=== PATIENT | female | born 1970 | race Caucasian/White ===

== ENCOUNTER → 2017-08-24 13:30 | Outpatient (CLI) | payer OTHER, BC, SELFPAY ==
--- NOTE | 2017-08-24 13:36 | MM_ITS ---
MM Dig mamm DX unilat RT CAD INDICATION: Follow-up abnormal mammogram ORDERING PHYSICIAN: Jack Hall MD PATIENT AGE: 46 years COMPARISON: 1128 and 17, 02/27/2017, 02/24/2016 TECHNIQUE: Standard images performed along with problem-solving views FINDINGS: There is dense fibroglandular tissue which decreases the sensitivity of mammography. Asymmetric density is present in the retroareolar region centrally as before this is not significant changed and is felt to represent asymmetric fibroglandular tissue have an a similar appearance dating back to 12/15/2011. No malignant appearing mass or malignant appearing microcalcification is evident. IMPRESSION: Dense fibroglandular tissue. No convincing evidence of malignancy BI-RADS Category: BI-RADS Category: 2 Benign Finding(s) RECOMMENDED FOLLOW-UP: 6M - 6 MONTH FOLLOW-UP Recommend continued screening mammogram in 6 months of both breasts (A letter has been sent to the patient regarding results of the study.)
== END ==
PROVIDERS: PCP Internal Medicine Adolescent Medicine; Visit Provider Nurse Practitioner Obstetrics & Gynecology
DX: R92.2 Inconclusive mammogram (principal)
CPT/HCPCS: 77065

== ENCOUNTER → 2018-02-26 12:53 | Outpatient (CLI) | payer OTHER, BC, SELFPAY ==
--- NOTE | 2018-02-26 12:54 | MM_ITS ---
MM Dig screening mamm BI w/CAD ORDERING PHYSICIAN : Jack Hall MD PATIENT AGE: 47 years GENDER: Female COMPARISON: Bilateral mammogram studies from February 2017 and 2015 & December 2011 bilateral mammogram,. as well as right mammogram August 2017 INDICATION: ITS.REASON: Routine Screening Mammogram Family history. Mother age 65 TECHNIQUE: Standard CC and MLO images were obtained. R2 CAD reviewed.. Additional axillary cc view both breast along with nipple profile MLO right breast FINDINGS: Moderately dense breast bilaterally with stable mild asymmetry. Prior films are helpful and demonstrates stability of this pattern with no significant new areas of concern. RIGHT BREAST:. Right breast appears similar to 2017 exam. Mild asymmetry with slightly more evident fibroglandular elements at the right breast again noted and appears stable but no new findings of significant concern otherwise. LEFT BREAST:Stable with no new areas of concern. Follow-up in one year adequate IMPRESSION: Stable bilateral mammogram no significant new findings. Moderately dense breast. With Stable mild asymmetry. Bilateral follow-up in one year recommended. BI-RADS Category: 1 Negative RECOMMENDED FOLLOW-UP: 1YR 1 YEAR FOLLOW-UP (A letter has been sent to the patient regarding results of the study.)
== END ==
PROVIDERS: PCP Internal Medicine Adolescent Medicine; Visit Provider Nurse Practitioner Obstetrics & Gynecology
DX: Z12.31 Encounter for screening mammogram for malignant neoplasm of breast (principal)
CPT/HCPCS: 77067

== ENCOUNTER → 2018-06-28 11:00 | Outpatient (CLI) | payer OTHER, BC, SELFPAY ==
--- NOTE | 2018-06-28 11:01 | CT_ITS ---
CT abdomen pelvis wo/w con CLINICAL INDICATION: Left lower quadrant pain ITS.REASON: LLQ PAIN ORDERING PHYSICIAN: Kamilla Palomares PATIENT AGE: 47 years COMPARISON: 03/16/2011 TECHNIQUE: Axial images obtained with sagittal and coronal reformats. All CT scans at the facility use one or more dose reduction, viz: automated exposure control, ma/kV adjustment per patient size (including targeted exams where dose is matched to indication, i.e. head), or iterative reconstruction technique. PROCEDURE: Oral Contrast: Redicat IV Contrast: 75 mL's Optiray 350. FINDINGS: No acute finding in the lung bases. There is a 10 mm isodense lesion in the medial segment left hepatic lobe anteriorly consistent with a hepatic cysts. An additional lobular lesion is present in the left hepatic lobe at 11 mm and also one in the caudate lobe at 11 mm consistent with hepatic cysts. These are slightly increased in size compared to the previous study. There are postcholecystectomy changes. No renal or ureteral calculi. No hydronephrosis. The spleen, adrenal glands, and pancreas have an unremarkable appearance. There are post appendectomy changes. No intestinal obstruction or free air is evident. There is diverticulosis of the descending and sigmoid colon. There is thickening of the sigmoid colon with a more focal area of thickening involving the mid aspect of the sigmoid colon with mild soft tissue prominence projecting medially and superiorly and some with some minimal enhancement in this area consistent with diverticulitis. No abscess or free air is evident. There is some somewhat stellate stranding of the fat in this region superior to the urinary bladder. This however had a similar appearance on the previous exam and millimeters vascularity. There is grade 1 Spondylitic spondylolisthesis of L5 on S1. Degenerative disc disease is also present at that level. IMPRESSION: 1. The findings are compatible with diverticulitis of the sigmoid colon. There is some nodular thickening at this region therefore, follow-up is recommended to confirm resolution. Neoplasm is felt to be less likely but is not completely excluded. 2. Diffuse diverticulosis of the descending and sigmoid colon. 3. Hepatic cysts
== END ==
PROVIDERS: PCP Nurse Practitioner Family; Visit Provider Nurse Practitioner Family
DX: R10.32 Left lower quadrant pain (principal)
CPT/HCPCS: 74178; Q9967

== ENCOUNTER → 2019-03-29 08:30 | Outpatient (CLI) | payer OTHER, BC, SELFPAY ==
--- NOTE | 2019-03-29 08:32 | MM_ITS ---
PROCEDURE: MM DIG SCREENING MAMM BI W/CAD CLINICAL INDICATION: SCREENING There is a history of breast cancer patient's mother diagnosed after menopause. COMPARISON: DMDXUAVR DIG MAMM-DX UNI A/VW-RT W/CAD from 03/07/2017 DXRT MM Dig mamm DX unilat RT CAD from 08/24/2017 [facility] MM Dig screening mamm BI w/CAD from 02/26/2018 TECHNIQUE: Standard CC and MLO images were obtained. R2 CAD reviewed. FINDINGS: Moderate fibroglandular densities are seen in the central portions of both breast. There is a mole marker left breast. There are couple of benign-appearing microcalcifications right breast. There is no suspicious lesion and no suspicious microcalcifications. IMPRESSION: Stable exam with no suspicious lesions seen BI-RAD Category: 2 Benign Finding(s) FOLLOW-UP: 1YR 1 Year Follow-up (A letter has been sent to the patient regarding results of the study.) Dictated by: Dr. Giuseppe Bautista MD 03/31/2019 09:[address] Giuseppe Bautista MD in [place] 03/31/2019 09:27
== END ==
PROVIDERS: PCP Internal Medicine Adolescent Medicine; Visit Provider Internal Medicine Adolescent Medicine
DX: Z12.31 Encounter for screening mammogram for malignant neoplasm of breast (principal)
CPT/HCPCS: 77067

== ENCOUNTER → 2019-09-13 14:06 | Outpatient (CLI) | payer OTHER, BC, SELFPAY ==
[2019-09-13 16:54] LABS: Coronavirus 19 IgG Antibody Negative (Negative); Coronavirus 19 IgM Antibody Negative (Negative)
== END ==
PROVIDERS: Visit Provider Internal Medicine Adolescent Medicine
DX: Z03.818 Encounter for observation for suspected exposure to other biological agents ruled out (principal)
CPT/HCPCS: 36415; 86328

== ENCOUNTER → 2019-11-28 11:41 | Outpatient (CLI) | payer OTHER, BC, SELFPAY ==
--- NOTE | 2019-11-28 12:09 | CT_ITS ---
PROCEDURE: CT ABDOMEN PELVIS WO/W CON CLINICAL INDICATION: DIVERTICULITIS, RLQ ABD PAIN Right lower quadrant pain, history of diverticulitis COMPARISON: CT ABDPELWW CT abdomen pelvis wo/w con from 06/28/2018 TECHNIQUE: IV Contrast: 75ML OPTIRAY 350 Oral Contrast 10ml Gastroview Axial images obtained with sagittal and coronal reformats. All CT scans at the facility use one or more dose reduction, viz: automated exposure control, ma/kV adjustment per patient size (including targeted exams where dose is matched to indication, i.e. head), or iterative reconstruction technique. FINDINGS: LOWER THORAX: No acute finding ABDOMEN & PELVIS: There are scattered hypodensities involving the liver which may represent a P[place]ock cysts. There has been a prior cholecystectomy. The spleen, adrenal glands, pancreas, and kidneys show no acute finding. No renal or ureteral calculi. No hydronephrosis. There are suspected small bilateral renal cortical cysts too small to categorize. Prior appendectomy. There is diverticulosis of the descending and sigmoid colon. There is some minimal stranding of the pericolic fat around a diverticulum along the medial aspect of the descending colon image 55 series 5 which could represent some mild diverticulitis. There is no evidence of abscess or perforation. No pelvic mass or abnormal fluid collection. There is grade 1 spondylitic spondylolisthesis of L5 on S1 with degenerative disc disease at that level. There is some decreased attenuation within the left aspect of the cervix suggesting nabothian cyst at approximately 1.5 cm. IMPRESSION: 1. Descending and sigmoid diverticulosis with suggestion of some mild diverticulitis involving the descending colon medially. No abscess or perforation. 2. Hepatic cysts Dictated by: Khris Noriega MD 11/28/2019 15:04 Khris Noriega MD in [place] 11/28/2019 15:04
== END ==
PROVIDERS: PCP Internal Medicine Adolescent Medicine; Visit Provider Nurse Practitioner Family
DX: R10.31 Right lower quadrant pain (principal); K57.92 Diverticulitis of intestine, part unspecified, without perforation or abscess without bleeding
CPT/HCPCS: 74178; Q9967

== ENCOUNTER 2020-01-13 17:04 | Emergency (ER) | payer OTHER, BC, SELFPAY ==
[2020-01-13 17:10] VITALS: BP 144/82; PULSE 88; RESP 16; TEMP 36.8; O2SAT 99; BMI 25.0
--- NOTE | 2020-01-13 17:23 | CT_ITS ---
PROCEDURE: CT ABDOMEN PELVIS W CON CLINICAL INDICATION: pain Nausea, vomiting, and abdominal pain. Hx of diverticulitis per patient. Uterine ablation. states not . COMPARISON: CT CT ABDOMEN PELVIS WO/W CON from 11/28/2019 TECHNIQUE: IV Contrast: 75ML OPTIRAY 350 Oral Contrast None Axial images obtained with sagittal and coronal reformats. All CT scans at the facility use one or more dose reduction, viz: automated exposure control, ma/kV adjustment per patient size (including targeted exams where dose is matched to indication, i.e. head), or iterative reconstruction technique. FINDINGS: LOWER THORAX: No acute finding ABDOMEN & PELVIS: There has been a prior cholecystectomy. There are 3 hypodense areas of the left hepatic lobe which may be due to cysts. The spleen, adrenal glands, and pancreas have an unremarkable appearance. No renal or ureteral calculi. There is a circum aortic left renal vein as a normal variant. Prior appendectomy. There is colonic diverticulosis involving the transverse and descending colon. There is focal thickening of the proximal sigmoid colon with stranding of the pericolic fat consistent with acute diverticulitis. No abscess or perforation evident Grade 1 spondylitic spondylolisthesis L5-S1 with degenerative disc disease. IMPRESSION: Acute diverticulitis involving the proximal sigmoid colon. No evidence of abscess or perforation. Other nonacute findings as described above. Dictated by: Khris Noriega MD 01/14/2020 07:19 Khris Noriega MD in [place] 01/14/2020 07:19
--- NOTE | 2020-01-13 17:26 | PC.NURSE ---
notified rad of ct order.
[2020-01-13 17:28] LABS: Microscopic, Urine URINE MICROSCOPIC (MICROSCOPIC)
[2020-01-13 17:29] LABS: Chloride 102 mmol/L (98-107); Sodium 139 mmol/L (136-145)
[2020-01-13 17:29] LABS: Appearance,Urine CLEAR (Clear); Bilirubin,Urine Negative (Negative); Blood, Urine 1+ (Negative); Color,Urine YELLOW (Yellow); Glucose,Urine (UA) Negative (Negative); Ketones,Urine TRACE (Negative); Leukocyte Esterase,Urine 1+ (Negative); Nitrate,Urine Negative (Negative); Protein,Urine 2+ (Negative); Specific Gravity, Urine 1.015 (1.005-1.030); Urobilinogen,Urine 0.2 EU/dl (0.2)
[2020-01-13 17:30] LABS: Potassium 4.2 mmoL/L (3.5-5.1)
[2020-01-13 17:31] LABS: Basophils % 0.1 % (0.1-2.0); Eosinophils % 0.1 % (0.1-12.0); Hematocrit 38.7 % (37.0-47.0); Hemoglobin 12.9 g/dL (12.2-16.2); Lymphocytes # 1.2 K/mm3 (0.7-4.5); Lymphocytes % 12.7 % (10-50); Mean Corpuscular HGB Conc 33.4 g/dL (31.8-35.4); Mean Corpuscular Hemoglobin 30.5 pg (27.0-31.2); Mean Corpuscular Volume 91.1 fl (81-99); Mean Platelet Volume 7.5 fl (7.4-10.4); Monocytes # 0.4 K/mm3 (0.1-1.0); Monocytes % 4.5 % (1.7-9.3); Neutrophils # 7.8 K/mm3 (1.8-7.8); Neutrophils % 82.6 % (37.0-80.0); Platelet Count 244 K/mm3 (142-424); Red Blood Count 4.24 M/mm3 (4.20-5.40); White Blood Count 9.4 K/mm3 (4.8-10.8)
[2020-01-13 17:32] LABS: Urine Pregnancy, HCG Qual. Negative (Negative)
[2020-01-13 17:32] LABS: Alanine Aminotransferase 18 U/L (12-78); Alkaline Phosphatase 68 U/L (38-126); Anion Gap 13.2 mEq/L (5-15); Aspartate Amino Transferase 28 U/L (14-36); Bilirubin,Total 0.7 mg/dl (0.2-1.3); Blood Urea Nitrogen 16 mg/dl (7-17); Calcium 9.7 mg/dl (8.4-10.2); Carbon Dioxide 28 mmol/L (22.0-30.0); Creatinine Clearance Estimated 34 mL/min (50-200); Estimated Glomerular Filt Rate 23 ml/min (>60); GFR (African American) 27 ML/MIN (>60); Glucose 134 mg/dl (74-100); Lipase 49 U/L (23-300)
[2020-01-13 17:33] LABS: Albumin Level 4.1 g/dl (3.5-5.0); Albumin/Globulin Ratio 1.1 (1.1-1.8); Globulin 3.6 g/dL (1.3-3.2); Total Protein,Serum 7.7 g/dl (6.3-8.2)
[2020-01-13 17:39] VITALS: BP 136/87; PULSE 78; O2SAT 98
[2020-01-13 17:42] LABS: Bacteria,Urine 1+ /lpf
--- NOTE | 2020-01-13 17:58 | HMH.EDABDPAI ---
ED Disposition Clinical Impression: Sigmoid diverticulitis Disposition: Home, Self-Care Condition on Discharge: Good Instructions: DI for Diverticulitis Prescriptions: Amoxicillin/Potassium Clav [Augmentin 875-125 Tablet] 1 tab PO Q12H 10 Days #20 tab Prescription Printed Hydrocodone/Acetaminophen [[place] 5-325 Tablet] 1 each PO TID 2 Days #6 tab Prescription Printed Ondansetron [Zofran 4mg ODT] 4 mg PO BIDP PRN #10 tab PRN Reason: Vomiting Prescription Printed Referrals: Yonis Ugarte MD [Primary Care Provider] - - Critical Care Critical Care Time: No Attestation: On 01/13/20, the high probability of a clinically significant, sudden or life threatening deterioration of the following system(s) required my full and direct attention, intervention and personal management. The time I documented below is in addition to time spent performing reported procedures but includes the following listed in this critical care notation. Medical Decision Making - Ronen Inquiry Pt receiving controlled substance: Yes Ronen was queried for this patient: No Reason not queried -: Emergent pt cond-no time Risks and benefits of using a controlled substance: were discussed with pt by me Vital Signs: 01/13/20 17:10 01/13/20 17:39 01/13/20 18:27 Temperature 98.3 F Temperature Source Oral Pulse Rate [Right Radial] 88 78 82 Respiratory Rate 16 18 Blood Pressure [Right Arm] 144/82 H 136/87 149/95 H Blood Pressure Mean [Right Arm] 102 103 113 Blood Pressure Source [Right Arm] Automatic Cuff Automatic Cuff Automatic Cuff Blood Pressure Position [Right Arm] Sitting Sitting Sitting 02 Sat by Pulse Oximetry 99 98 100 Oxygen Delivery Method Room Air Room Air Room Air - Lab Data Lab Results 01/13/20 17:10: Urine Color Yellow, Urine Appearance Clear, Urine pH 6.0, Ur Specific [place] 1.015, Urine Protein 2+, Urine Glucose (UA) Negative, Urine Ketones Trace, Urine Blood 1+, Urine Nitrate Negative, Urine Bilirubin Negative, Urine Urobilinogen 0.2, Ur Leukocyte Esterase 1+ A, Urine RBC 5-10, Urine WBC 5-10, Ur Squamous Epith Cells 3-5, Urine Bacteria 1+ 01/13/20 17:10: Urine HCG, Qual Negative 01/13/20 17:15: WBC 9.4, RBC 4.24, Hgb 12.9, Hct 38.7, MCV 91.1, MCH 30.5, MCHC 33.4, RDW 13.0, Plt Count 244, MPV 7.5, Neut % (Auto) 82.6 H, Lymph % (Auto) 12.7, [place] % (Auto) 4.5, Eos % (Auto) 0.1, Baso % (Auto) 0.1, Neut # (Auto) 7.8, Lymph # (Auto) 1.2, [place] # (Auto) 0.4, Eos # (Auto) 0.0, Baso # (Auto) 0.0 01/13/20 17:15: Sodium 139, Potassium 4.2, Chloride 102, Carbon Dioxide 28, Anion Gap 13.2, BUN 16, Creatinine 2.30 H, Estimated Creat Clear 34, Estimated GFR 23 L, Est GFR ( Amer) 27 L, Glucose 134 H, Calcium 9.7, Total Bilirubin 0.7, AST 28, ALT 18, Alkaline Phosphatase 68, Total Protein 7.7, Albumin 4.1, Globulin 3.6 H, Albumin/Globulin Ratio 1.1, Lipase 49 Result diagrams: 01/13/20 17:15 01/13/20 17:15 Orders (Tests/Meds): ED MEDICATIONS Generic Name Dose Route Start Last Admin Trade Name Freq PRN Reason Stop Dose Admin Sodium Chloride 1,000 mls @ 999 mls/hr 01/13/20 17:30 01/13/20 17:32 Sod Chlor 0.9% 1000ml Bag IV 01/13/20 18:30 999 mls/hr .Q1H1M HENRIK Administration Discontinued Medications Generic Name Dose Route Start Last Admin Trade Name Freq PRN Reason Stop Dose Admin Ioversol 75 ml 01/13/20 18:09 01/13/20 18:10 Ioversol-350 (74%) 100ml Vial IV 01/13/20 18:10 75 ml ONCE ONE Administration Protocol Morphine Sulfate 4 mg 01/13/20 17:23 Morphine 4mg/Ml Syringe IV 01/13/20 17:24 ONCE ONE Ondansetron HCl 4 mg 01/13/20 17:23 Ondansetron 4mg/2ml Vial IV 01/13/20 17:24 ONCE ONE Sodium Chloride 10 ml 01/13/20 18:09 Sodium Chloride 0.9% 10ml Syr (Rad Only) IV 01/13/20 18:10 ONCE ONE ORDERS Category Date Time Status CT abdomen pelvis w con Stat Cat Scan 01/13/20 17:23 Taken Urine Culture Stat Micro 01/13/20 17:10 Received -
[2020-01-13 18:27] VITALS: BP 149/95; PULSE 82; RESP 18; O2SAT 100
[2020-01-13 18:48] VITALS: BP 149/75; PULSE 78; O2SAT 98
--- NOTE | 2020-01-13 19:15 | PC.NURSE ---
pt report received
[2020-01-13 19:31] VITALS: BP 123/82; PULSE 77; RESP 16; TEMP 36.1; O2SAT 98
== END 2020-01-13 19:39 | disposition home or self-care (01) ==
PROVIDERS: Emergency Provider Emergency Medicine; PCP Internal Medicine Adolescent Medicine
DX: K57.32 Diverticulitis of large intestine without perforation or abscess without bleeding (principal)
CPT/HCPCS: 74177; 80053; 81001; 81025; 83690; 85025; 87086; 96365; 96367; 96375; 99283; Q9967

== ENCOUNTER → 2020-03-19 15:28 | Outpatient (CLI) | payer OTHER, BC, SELFPAY ==
--- NOTE | 2020-03-19 15:28 | MM_ITS ---
PROCEDURE: MM DIG SCREENING MAMM BI W/CAD Referring Doctor: Jack Hall Patient Age:49Y CLINICAL INDICATION: screening xmg 49-year-old routine screening mammogram. No hormones. No new complaints. Family history: Mother breast cancer age 65. COMPARISON: MG DIGMAMMS MAMMOGRAM SCREEN-WEATHER CLERK N/C from 10/18/2007 MG DMSB DIGITAL MAMM-SCREEN BILATERAL from 12/15/2011 MG DMSB DIG MAMM-SCREEN BOO from 02/24/2016 MG DMSB DIG MAMM-SCREEN BOO W/CAD from 02/27/2017 MG DMDXUAVR DIG MAMM-DX UNI A/VW-RT W/CAD from 03/07/2017 MG DXRT MM Dig mamm DX unilat RT CAD from 08/24/2017 MG [facility] MM Dig screening mamm BI w/CAD from 02/26/2018 MG MM DIG SCREENING MAMM BI W/CAD from 03/29/2019 TECHNIQUE: Standard CC and MLO images were obtained. R2 CAD reviewed. Bilateral digital breast tomosynthesis included. FINDINGS: moderate residual fibroglandular tissue and breast density. Noting sequential involution of fibroglandular elements over the course of multiple mammogram studies. Stable overall articular texture with no new dominant or suspicious mass Tomosynthesis views show no new new areas of concern Left breast-. No significant findings of concern Overall appearance and features stable when back to 2016 stable tiny 5 mm intramammary node at the upper-outer quadrant left breast again noted with other subtle minor areas asymmetry stable as well Right breast: No new areas of concern Stable pattern features seen before including a subtle intramammary axillary tail right breast Bilateral follow-up 1 year recommended IMPRESSION: Stable Bilateral Mammogram No new areas of concern. RECOMMEND bilateral follow-up 1 year. BI-RAD Category: 2 Benign Finding(s) FOLLOW-UP: 1YR 1 Year Follow-up (A letter has been sent to the patient regarding results of the study.) Dictated by: Dorian Malloy MD 03/23/2020 11:50 Dorian Malloy MD in [place] 03/23/2020 11:50
== END ==
PROVIDERS: PCP Internal Medicine Adolescent Medicine; Visit Provider Nurse Practitioner Obstetrics & Gynecology
DX: Z12.31 Encounter for screening mammogram for malignant neoplasm of breast (principal)
CPT/HCPCS: 77063; 77067

== ENCOUNTER → 2020-04-25 14:06 | Outpatient (CLI) | payer OTHER, BC, SELFPAY | PROVIDERS: PCP Internal Medicine Adolescent Medicine; Visit Provider Internal Medicine Adolescent Medicine | DX: Z20.822 Contact with and (suspected) exposure to COVID-19 (principal); R05 Cough | CPT/HCPCS: U0003 ==

== ENCOUNTER 2020-07-24 09:12 | Emergency (ER) | payer OTHER, BC, SELFPAY ==
[2020-07-24 09:15] VITALS: BP 124/81; PULSE 71; RESP 20; TEMP 37; O2SAT 97; BMI 25.0
--- NOTE | 2020-07-24 09:50 | HMH.EDUTC ---
[facility] [place] Disposition Clinical Impression: URI (upper respiratory infection) Qualifiers: URI type: unspecified URI Qualified Code(s): J06.9 - Acute upper respiratory infection, unspecified Disposition: Home, Self-Care Condition on Discharge: Good Instructions: Sore Throat, Azithromycin Additional Instructions: *Monitor Temp, Over the counter Motrin or Tylenol as directed/as needed Tylenol every 4 hours and Motrin every 6 hours (as long as your family doctor has told you that you can take it) for fever or pain. and straight to ER if unable to lower temp less than 101.0 after medication given *Warm salt water gargles may help to soothe the throat *Throat Lozenges *Warm fluids like tea with honey may help to soothe the throat *Sleep elevated *Humidifier/Vaporizer Your throat swab was sent for culture. Those results are typically sent to your primary care. Be sure to follow up in 2-3 days with your family doctor/primary care physician if no improvement so they can review those result and treat if necessary. If you don?t have a primary care doctor, I recommend you get one but in the mean time, you will have to return to a walk in clinic Follow up IMMEDIATELY for new or worsening symptoms or no Noticeable improvement over the next 48-72 hours. 911 for difficulty breathing or swallowing Prescriptions: Azithromycin [Z-Mik 250mg Tab] 250 mg PO DIRECTED #6 tab Transmission Status: Pending to Clinic [facility] Referrals: Yonis Ugarte MD [Primary Care Provider] - As needed Forms: Work/School Release Time of Disposition: 10:20 Medical Decision Making - Ronen Inquiry Pt receiving controlled substance: No Ronen was queried for this patient: No Vital Signs: 07/24/20 09:15 Temperature 98.6 F Temperature Source Oral Pulse Rate [Right Brachial] 71 Respiratory Rate 20 Blood Pressure [Right Arm] 124/81 Blood Pressure Mean [Right Arm] 95 Blood Pressure Source [Right Arm] Automatic Cuff Blood Pressure Position [Right Arm] Sitting 02 Sat by Pulse Oximetry 97 Oxygen Delivery Method Room Air - Lab Data Lab results reviewed: Yes: I reviewed the patient's lab results. Lab Results 07/24/20 09:25: Strep Scn Rapid Clinic Negative 07/24/20 09:50: Monoscreen Negative Orders (Tests/Meds): ORDERS Category Date Time Status Strep Screen Confirmation Stat Micro 07/24/20 09:25 Received Medical Decision Narrative: Patients rapid strep was negative however patient presents with sore throat and noted exudate so even though negative Rapid test will treat for strep throat [facility] [place] HPI - General Stated complaint: sore throat Time Seen by Provider: 07/24/20 09:50 Mode of Arrival: Ambulatory Source of Information: Patient Limitations: No Limitations Description of Symptoms (Recalled from Triage Doc. by RN): PATIENT C/O SORE THROAT SINCE MONDAY HEENT Symptoms (Recalled from RN notes): Yes Resp Symptoms (Recalled from RN notes): No Skin Symptoms (Recalled from RN notes): No MS Symptoms (Recalled from RN notes): No Functional Status (Recalled from RN notes): WNL - History of Present Illness Provider Complaint: Patient states that she started having sore throat yesterday and pain in her left ear when she swallows States that today she was still having pain and not feeling well - Related Data Previous Rx's Medication Instructions Recorded Azithromycin [Z-Mik 250mg Tab] 250 mg PO DIRECTED #6 tab 07/24/20 Allergies Allergy/AdvReac Type Severity Reaction Status Date / Time No Known Allergies Allergy Verified 07/24/20 09:37 - Worker's Comp Is this a Worker's Comp case?: No [facility] History - Hepatitis A Screen Drug use history?: No High risk sexual behaviors?: No History of sexually transmitted infection?: No Currently employed?: No Childcare worker?: No Do you have indoor plumbing?: Yes Do you have electricity?: Yes Attestation statement:: This patient has been screened for Hepatitis A ris
[2020-07-24 10:07] LABS: Monoscreen (Rapid) Negative (Negative)
[2020-07-24 10:13] LABS: UTC Strep Screen (Rapid) Negative (Negative)
[2020-07-24 10:22] VITALS: BP 124/81; PULSE 71; RESP 20; TEMP 37; O2SAT 97
== END 2020-07-24 10:26 | disposition home or self-care (01) ==
PROVIDERS: Emergency Provider Nurse Practitioner; PCP Internal Medicine Adolescent Medicine
DX: J06.9 Acute upper respiratory infection, unspecified (principal)
CPT/HCPCS: 86318; 87880; 99202; G0463

== ENCOUNTER → 2021-04-05 15:25 | Outpatient (CLI) | payer OTHER, SELFPAY ==
--- NOTE | 2021-04-05 15:27 | MM_ITS ---
PROCEDURE INFORMATION: Exam: MG Bilateral Screening 3D Mammography Exam date and time: 04/05/2021 3:27 PM Age: 50 years old Clinical indication: Screening mammogram TECHNIQUE: Imaging protocol: Bilateral screening tomosynthesis and 2D mammography including computer-aided detection (CAD) when performed. COMPARISON: 1. MG MM DIG SCREENING MAMM BI W/CAD 03/19/2020 3:36 PM 2. MG MM DIG SCREENING MAMM BI W/CAD 03/29/2019 8:37 AM 3. MG [facility] MM Dig screening mamm BI w/CAD 02/26/2018 1:14 PM 4. MG DXRT MM Dig mamm DX unilat RT CAD 08/24/2017 1:47 PM FINDINGS: MAMMOGRAPHY: Breast composition: There are scattered areas of fibroglandular density. Mass: None. Architectural distortion: No new or suspicious architectural distortion. Calcifications: No new or suspicious calcifications are present Asymmetric density: No new or suspicious asymmetric density is present Skin thickening: None. Axillary adenopathy: None. IMPRESSION: No mammographic evidence of malignancy. Recommend annual screening mammography unless otherwise clinically indicated. ASSESSMENT: BI-RADS category 1: Negative
== END ==
PROVIDERS: PCP Internal Medicine Adolescent Medicine; Visit Provider Internal Medicine Adolescent Medicine
DX: Z12.31 Encounter for screening mammogram for malignant neoplasm of breast (principal)
CPT/HCPCS: 77063; 77067

== ENCOUNTER → 2021-05-04 16:15 | Outpatient (CLI) | payer OTHER, SELFPAY | PROVIDERS: PCP Internal Medicine Adolescent Medicine; Visit Provider Nurse Practitioner | DX: Z20.822 Contact with and (suspected) exposure to COVID-19 (principal) | CPT/HCPCS: C9803; U0003; U0005 ==

== ENCOUNTER → 2021-12-02 12:07 | Outpatient (CLI) | payer OTHER, SELFPAY ==
[2021-12-02 12:26] LABS: Coronavirus 19, PCR Not Detected (NotDetected); Influenza A, PCR Not Detected (NotDetected); Influenza B, PCR Not Detected (NotDetected)
== END ==
PROVIDERS: PCP Internal Medicine Adolescent Medicine; Visit Provider Nurse Practitioner
DX: Z20.822 Contact with and (suspected) exposure to COVID-19 (principal); J02.9 Acute pharyngitis, unspecified
CPT/HCPCS: C9803; U0003; U0005

== ENCOUNTER → 2022-05-20 15:46 | Outpatient (CLI) | payer OTHER, SELFPAY ==
--- NOTE | 2022-05-20 15:49 | MM_ITS ---
PROCEDURE INFORMATION: Exam: MG Bilateral Screening 3D Mammography Exam date and time: 05/20/2022 3:41 PM Age: 51 years old Clinical indication: Screening examination TECHNIQUE: Imaging protocol: Bilateral Screening tomosynthesis and 2D mammography including computer-aided detection (CAD) when performed. COMPARISON: 1. MG MM DIG SCREENING MAMM BI W/CAD 04/05/2021 3:30 PM 2. MG MM DIG SCREENING MAMM BI W/CAD 03/19/2020 3:36 PM 3. MG MM DIG SCREENING MAMM BI W/CAD 03/29/2019 8:37 AM 4. MG [facility] MM Dig screening mamm BI w/CAD 02/26/2018 1:14 PM FINDINGS: MAMMOGRAPHY: Breast composition: There are scattered areas of fibroglandular density. Mass: None. Architectural distortion: No new or suspicious architectural distortion. Calcifications: No new or suspicious calcifications are present Asymmetric density: No new or suspicious asymmetric density is present Skin thickening: None. Axillary adenopathy: None. IMPRESSION: No mammographic evidence of malignancy. Recommend annual screening mammography unless otherwise clinically indicated. ASSESSMENT: BI-RADS category 1: Negative
== END ==
PROVIDERS: PCP Internal Medicine Adolescent Medicine; Visit Provider Internal Medicine Adolescent Medicine
DX: Z12.31 Encounter for screening mammogram for malignant neoplasm of breast (principal)
CPT/HCPCS: 77063; 77067

== ENCOUNTER 2023-08-29 16:09 | Outpatient (POV) | payer OTHER, SELFPAY | END 2023-08-29 23:59 | disposition home or self-care (01) | LOC: SC 16:09 | PROVIDERS: PCP Internal Medicine Adolescent Medicine; Visit Provider Dermatology | DX: Z00.00 Encounter for general adult medical examination without abnormal findings (principal) ==

== ENCOUNTER 2024-03-21 07:53 | Outpatient (CLI) | payer OTHER, SELFPAY ==
--- NOTE | 2024-03-21 07:57 | MM_ITS ---
PROCEDURE INFORMATION: Exam: MG Bilateral Screening 3D Mammography Exam date and time: 03/21/2024 7:45 AM Age: 53 years old Clinical indication: Screening examination. Her mother had breast cancer at age 65. TECHNIQUE: Imaging protocol: Bilateral Screening tomosynthesis and 2D mammography including computer-aided detection (CAD) when performed. COMPARISON: 1. MG MM DIG SCREENING MAMM BI W/CAD 05/20/2022 3:41 PM 2. MG MM DIG SCREENING MAMM BI W/CAD 04/05/2021 3:30 PM 3. MG MM DIG SCREENING MAMM BI W/CAD 03/19/2020 3:36 PM 4. MG MM DIG SCREENING MAMM BI W/CAD 03/29/2019 8:37 AM FINDINGS: MAMMOGRAPHY: Breast composition: There are scattered areas of fibroglandular density. Mass: No suspicious mass.Architectural distortion: None. Calcifications: No suspicious calcifications. Asymmetric density: None. Skin thickening: None. Axillary adenopathy: None. IMPRESSION: No mammographic evidence of malignancy. Annual screening is recommended unless otherwise clinically indicated. ASSESSMENT: BI-RADS Category 1: Negative.
== END 2024-03-21 23:59 | disposition home or self-care (01) ==
LOC: RAD 07:54
PROVIDERS: PCP Internal Medicine Adolescent Medicine; Visit Provider Internal Medicine Adolescent Medicine
DX: Z12.31 Encounter for screening mammogram for malignant neoplasm of breast (principal)
CPT/HCPCS: 77063; 77067

== ENCOUNTER 2024-06-04 11:00 | Outpatient (RCR) | payer OTHER, SELFPAY ==
--- NOTE | 2024-05-29 15:10 | [facility].PTOPEV ---
PT Outpatient Evaluation Rehab PT Outpatient Evaluation Start: 05/29/24 11:00 Freq: Status: Active Protocol: Document 05/29/24 11:53 ADAM (Rec: 05/29/24 15:09 ADAM [id number]) E-signed By Ministerio Kingsley, PT Outpatient Therapy Subjective History Subjective History Patient is a 53 year old female presenting to outpatient PT with reports L anteromedial knee pain starting approx 1 month ago. Symptom onset after a slip and fall landing directly on the left patella. No recent imaging to report. 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 Other comorbidities include hx of HTN, cholecystectomy, appendectomy and tri-malleolar ORIR (2007). New diagnosis of cancer in past 12 No months? Chief Complaint Pain,Stiff,Catches/Locks Symptom Type Ache,Throb Symptoms Relieved By Rest/Positioning,Ice,OTC Meds, Prescription Meds,Elevation Symptoms Aggravated By Standing,Physical Activity, Walking Prior Functional Limitations None Current Functional Limitations Housework,Standing,Squatting, Recreation Activity,Walking, Stairs Symptom Description Intermittent Level of pain today (0-10) 2 Pain scale - at its best (0-10) 0 Pain scale - at its worst (0-10) 8 Hip/Knee Eval Gait Observation General Gait Pattern Observation No Deviations/Normal Palpation Tenderness left Knee Palpation Finding Tenderness Knee Palpation Overall Comment Patellar tendon, MJL, pes anserene 3/4 MMT Hip Flexion Strength Grade 4 Good Hip Abduction Strength Grade 4- Good- Hip Adduction Strength Grade 4- Good- Hip Extension Strength Grade 4- Good- Hip External Rotation Strength Grade 4 Good Hip Internal Rotation Strength Grade 4- Good- Knee Extension Strength Grade 4- Good- Knee Flexion Strength Grade 5 Normal ROM Hip ROM Reason Not Measured Within Functional Limits Knee Extension Active Range of Motion ( -4 degrees) Knee Flexion Active Range of Motion ( 128 degrees) Special Tests Knee Anterior Drawer Test Negative Left Knee Anterior Natacha Test Negative Left Knee Pivot Shift Test Negative Left Knee Valgus Stress Test Negative Left Knee Varus Stress Test Negative Left Knee Darrick Test Negative Left Lower Extremity Functional Index Activities Today, do you or would you have any difficulty at all with: a.Any of your usual work, housework or A little bit of difficulty school activities b. Your usual hobbies, recreational or Quite a bit of difficulty sporting activities c. Getting into or out of the bath No difficulty d. Walking between rooms A little bit of difficulty e. Putting on your shoes or socks Moderate difficulty f. Squatting No difficulty g. Lifting an object, like a bag of No difficulty groceries from the floor h. Performing light activities around No difficulty your home i. Performing heavy activities around Moderate difficulty your home j. Getting into or out of a car Quite a bit of difficulty k. Walking 2 blocks Quite a bit of difficulty l. Walking a mile Quite a bit of difficulty m. Going up or down 10 stairs (about 1 Quite a bit of difficulty flight of stairs) n. Standing for 1 hour Quite a bit of difficulty o. Sitting for 1 hour Quite a bit of difficulty p. Running on even ground Quite a bit of difficulty q. Running on uneven ground Extreme difficulty or unable to perform activity r. Making sharp turns while running fast Extreme difficulty or unable to perform activity s. Hopping Extreme difficulty or unable to perform activity t. Rolling over in bed No difficulty LEFI Score Lower Extremity Functional Index Score 38 Outpatient Therapy Assessment Impairments Problems/Impairmments Palpation Tenderness,Impaired Range of Motion,Impaired Strength,Impaired Gait Pattern ,Impaired Walking,Impaired Standing,Impaired Household Care,Impaired Stair Climbing, Impaired Incline Stepping, Impaired Stepping on Uneven Surface,Impaired Squatting, Impaired Recreational Activities,Impaired Work Activities,Subjective C/O Pain Prognosis Rehab Potential Good Clinical Impression Consistent with Diagnosis Yes Short Term Goals Number of Weeks 2 Decrease Subjective C/O Pain Yes: 08/17 Patient to be Ind w/ HEP Yes Verifying Specialist Goals Number of Weeks 4-6 Decreased Palpation Tenderness Yes: 1/ Increase Range of Motion Yes Increase Strength Yes: 5 LLE Increase Ability to Walk Yes: 1 hr without difficulty Increase Ability to Stand Yes Improve Ability to Climb Stairs Yes: 1 flight up/down without difficulty Return to Recreational Activities Yes Improve Tolerance to Work Activities Yes Decrease Subjective C/O Pain Yes: 2/10 at worst Outpatient Therapy Plan of Care Treatment Plan May Include Therapeutic Exercise Including Home Yes Exercise Program Manual Therapy Techniques Yes Neuromuscular Re-education Yes Therapeutic Activities to Return to Yes Previous Functional/Work Level Gait Training Yes Thermal Modalities Yes Electrical Stimulation Yes Ultrasound/Phonophoresis Yes Iontophoresis Yes Orthotics/Bracing/Splinting Yes Vasopneumatic Compression Pump Yes Massage Yes Manual Lymphatic Drainage Yes Eval/Re-Eval Yes Frequency Times per week 2 Duration Number of Weeks 4-6 Addendums This patient is a candidate for social No or vocational rehab? Patient/Guardian verbally acknowledges Yes understanding of treatment program and consents to further treatment? Patient/Guardian verbally acknowledges Yes understanding of diagnosis, prognosis and goals for treatment? Eval Complexity PT Charges 61834 - Moderate Complexity Shoulder/Elbow Eval Shoulder Objective Measurements Elbow Objective Measurements PHYSICIAN CERTIFICATION: I certify the specified therapy services for Shira Stone are required, authorized, and reviewed every 30 days.
== END 2024-06-04 23:59 | disposition home or self-care (01) ==
LOC: PT 11:00
PROVIDERS: PCP Internal Medicine Adolescent Medicine; Visit Provider Internal Medicine Adolescent Medicine
DX: M25.562 Pain in left knee (principal)
CPT/HCPCS: 97014; 97016; 97035; 97110; 97163; G0283